=== PATIENT | male | born 1960 | race Caucasian/White ===

== ENCOUNTER 2023-04-12 06:54 | Day surgery (SDC) | payer MEDICARE, OTHER ==
[~2023-04-12] VITALS: Ht 165.1 cm; Wt 82.0 kg
[2023-04-12] MEDS ORDERED: LIDOCAINE 2% 11 ML JELLY TP ONE (06:55)
[2023-04-12] MEDS ORDERED: LIDOCAINE 4% 50 ML SOLUTION TP ONE (06:55)
[2023-04-12] MEDS ORDERED: ALBUTEROL SULFATE 2.5 MG/0.5 ML NEB SOLUTION NEB ONE (06:55)
[2023-04-12] MEDS ORDERED: SODIUM CHLORIDE 0.9% 1,000 ML ONE (07:37)
[2023-04-12] MEDS ORDERED: ASPI-1450 PO (08:25)
[2023-04-12] MEDS ORDERED: ALLO-97 PO (08:25)
[2023-04-12] MEDS ORDERED: INSU100I26 SQ (08:25)
[2023-04-12] MEDS ORDERED: ATOR40TA28 PO (08:25)
[2023-04-12] MEDS ORDERED: FURO80 PO (08:25)
[2023-04-12] MEDS ORDERED: METO5TAB7 PO (08:25)
[2023-04-12] MEDS ORDERED: AMMO225L14 TP (08:30)
[2023-04-12] MEDS ORDERED: METO50 PO (08:30)
[2023-04-12] MEDS ORDERED: VALS80TA2 PO (08:30)
[2023-04-12] MEDS ORDERED: ACET325S20 PR (08:30)
[2023-04-12] MEDS ORDERED: SITA50 PO (08:30)
[2023-04-12] MEDS ORDERED: SEVE800T17 PO (08:30)
[2023-04-12] MEDS ORDERED: MIDAZOLAM HCL 2 MG/2 ML VIAL ONE (08:42)
[2023-04-12] MEDS ORDERED: FentaNYL CITRATE PF 100 MCG/2 ML VIAL ONE (08:42)
[2023-04-12] MEDS ORDERED: SODIUM CHLORIDE 0.9% 1,000 ML IV ONE (09:00)
[2023-04-12] MEDS ORDERED: MethylPREDNISolone SOD SUCC 125 MG/2 ML VIAL IVP ONE (09:15)
[2023-04-12] MEDS ORDERED: MethylPREDNISolone SOD SUCC 125 MG/2 ML VIAL ONE (09:33)
[2023-04-12 09:36] LABS: GLUCOMETER DEV NAME(LOC) SDS.
[2023-04-12] MEDS ORDERED: MethylPREDNISolone SOD SUCC 40 MG/ML VIAL IVP ONE (10:00)
== END 2023-04-12 11:20 | disposition home or self-care (01) ==
LOC: SURGERY 06:54
PROVIDERS: ATTEND Internal Medicine Critical Care Medicine
DX: J38.4 Edema of larynx (principal); B37.0 Candidal stomatitis; Z79.899 Other long term (current) drug therapy; E11.22 Type 2 diabetes mellitus with diabetic chronic kidney disease; I12.9 Hypertensive chronic kidney disease with stage 1 through stage 4 chronic kidney disease, or unspecified chronic kidney disease; N18.9 Chronic kidney disease, unspecified
CPT/HCPCS: 31623; 88112; 82962; 87206; 87101; 87220; 87070; 87015; 31624; 94640; 71045; J3010; J2250; J2930; Q9967; J7030; J7613; Z7610